=== PATIENT | female | born 1980 | race Caucasian/White ===

== ENCOUNTER 2019-02-04 10:38 | Inpatient (IN) | payer OTHER ==
[~2019-02-04] VITALS: Ht 154.9 cm; Wt 72.7 kg
[2019-02-04] MEDS ORDERED: OXYTOCIN 30U/ 0.9% NaCL 500ML 500 ML IV ONE (10:42)
[2019-02-04] MEDS ORDERED: NEWBORN KIT ONE ×2 (10:47→10:48)
[2019-02-04] MEDS ORDERED: MISOPROSTOL 200 MCG TABLET ONE (10:48)
[2019-02-04] MEDS ORDERED: LIDOCAINE 1%, 20ML ONE (10:48)
[2019-02-04] MEDS ORDERED: OXYTOCIN 30U/ 0.9% NaCL 500ML 500 ML ONE ×2 (10:48→12:41)
[2019-02-04] MEDS ORDERED: PLEASE ENTER ALLERGIES MC SCH (10:51)
[2019-02-04] MEDS ORDERED: AMPICILLIN 2 GM in SODIUM CHLORIDE 0.9% 100 ML IVPB ONE (10:52)
[2019-02-04] MEDS ORDERED: FENTANYL PF 100 MCG/2ML IVPush PRN (11:00)
[2019-02-04] MEDS ORDERED: FENTANYL PF 100 MCG/2ML IV PRN (11:00)
[2019-02-04] MEDS ORDERED: TERBUTALINE 1 MG/ML, 1ML IVPush PRN (11:00)
[2019-02-04] MEDS ORDERED: METOCLOPRAMIDE 5 MG/ML, 2ML IVPush PRN (11:00)
[2019-02-04] MEDS ORDERED: SODIUM CITRATE/CITRIC ACID 30 ML UDC PO PRN (11:00)
[2019-02-04] MEDS ORDERED: ONDANSETRON 2MG/ML, 2ML IVPush PRN (11:00)
[2019-02-04 11:30] LABS: BASOPHILS % (AUTO) 0 % (0-1); EOSINOPHILS % (AUTO) 0 % (1-7); LYMPHOCYTES # (AUTO) 0.79 x10^3/uL (1-3.4); LYMPHOCYTES % (AUTO) 7 % (22-44); MD NO; MEAN CORPUSCULAR HEMOGLOBIN 28.9 pg (27.0-34.8); MEAN PLATELET VOLUME 8.8 fL (7.4-10.4); MONOCYTES % (AUTO) 3 % (2-9); NEUTROPHILS % (AUTO) 90 % (42-75); PLATELET COUNT 226 x10^3/uL (130-400); RED BLOOD COUNT 3.87 x10^6/uL (3.82-5.3); RED CELL DISTRIBUTION WIDTH 14.9 % (9.6-15.2)
[2019-02-04] MEDS ORDERED: LACTATED RINGERS 1,000 ML IV SCH (12:00)
[2019-02-04] MEDS ORDERED: D5%-LACTATED RINGERS 1,000 ML IV SCH (12:00)
[2019-02-04] MEDS: OXYTOCIN 30U/ 0.9% NaCL 500ML 500 ML IV SCH ×2 (12:16→22:16)
[2019-02-04] MEDS ORDERED: CARBOPROST TROMETHAMINE 250 MCG/ML, 1ML IM PRN (12:30)
[2019-02-04] MEDS ORDERED: ACETAMINOPHEN 325 MG TABLET PO PRN (12:30)
[2019-02-04] MEDS ORDERED: MEASLES,MUMPS&RUBELLA VACC/PF 0.5 ML SQ-VACC PRN (12:30)
[2019-02-04] MEDS ORDERED: DOCUSATE 100 MG CAPSULE PO PRN (12:30)
[2019-02-04] MEDS ORDERED: MISOPROSTOL 200 MCG TABLET PR PRN (12:30)
[2019-02-04] MEDS ORDERED: METHYLERGONOVINE 0.2 MG/ML IM PRN (12:30)
[2019-02-04] MEDS ORDERED: IBUPROFEN 600 MG TABLET PO PRN (12:30)
[2019-02-04] MEDS ORDERED: OXYcodone/APAP 5/325MG TABLET PO PRN ×2 (12:30)
[2019-02-04] MEDS ORDERED: RHOGAM FROM BLOOD BANK 1 NOTE EA IM/IV ONE (12:30)
[2019-02-04] MEDS ORDERED: DIPH,PERTUSS(ACELL),TET VAC/PF NC IM-VACC PRN (12:30)
[2019-02-04 12:32] VITALS: BP 134/61
[2019-02-04 14:30] VITALS: BP 117/74
[2019-02-04] MEDS ORDERED: AMPICILLIN 1 GM in SODIUM CHLORIDE 0.9% 100 ML IVPB SCH (15:00)
[2019-02-04 19:41] LABS: BASOPHILS # (AUTO) 0.02 x10^3/uL (0-0.1); BASOPHILS % (AUTO) 0 % (0-1); EOSINOPHILS % (AUTO) 0 % (1-7); LYMPHOCYTES # (AUTO) 1.17 x10^3/uL (1-3.4); LYMPHOCYTES % (AUTO) 10 % (22-44); MD NO; MEAN CORPUSCULAR HEMOGLOBIN 29.3 pg (27.0-34.8); MEAN CORPUSCULAR HGB CONC 34.2 g/dL (32.4-35.8); MEAN CORPUSCULAR VOLUME 85.8 fL (80-100); MEAN PLATELET VOLUME 8.3 fL (7.4-10.4); MONOCYTES % (AUTO) 6 % (2-9); NEUTROPHILS # (AUTO) 9.74 x10^3/uL (1.8-6.8); NEUTROPHILS % (AUTO) 84 % (42-75); PLATELET COUNT 219 x10^3/uL (130-400); RED BLOOD COUNT 3.37 x10^6/uL (3.82-5.3); RED CELL DISTRIBUTION WIDTH 14.6 % (9.6-15.2)
[2019-02-04 19:45] VITALS: BP 121/81
[2019-02-05 00:10] VITALS: BP 119/72
[2019-02-05 04:20] VITALS: BP 114/71
[2019-02-05] MEDS: OXYTOCIN 30U/ 0.9% NaCL 500ML 500 ML IV SCH ×2 (07:26→18:16)
[2019-02-05 07:45] VITALS: BP 99/64
[2019-02-05] MEDS: PRENATAL VIT/IRON/FA 1 EACH TABLET PO SCH (09:28)
[2019-02-05 21:00] VITALS: BP 113/72
[2019-02-06] MEDS: OXYTOCIN 30U/ 0.9% NaCL 500ML 500 ML IV SCH (04:16)
[2019-02-06 06:56] VITALS: BP 110/74
[2019-02-06] MEDS: PRENATAL VIT/IRON/FA 1 EACH TABLET PO SCH (07:18)
== END 2019-02-06 14:30 | disposition home or self-care (01) | DRG 807 ==
LOC: LDOP 10:38 → LDIP 10:42 → 2NW 13:57
PROVIDERS: ADMIT Obstetrics & Gynecology; ATTEND Obstetrics & Gynecology
PROC: 10E0XZZ Delivery of Products of Conception, External Approach (ICD-10-PCS; principal; 2019-02-04)
PROC: 0HQ9XZZ Repair Perineum Skin, External Approach (ICD-10-PCS; 2019-02-04)
DX: O70.0 First degree perineal laceration during delivery (principal); Z37.0 Single live birth; Z3A.36 36 weeks gestation of pregnancy
CPT/HCPCS: 36415; 82803; 85025; 86850; 86900; 90715; G0378; J0290; J2590; J7120

== ENCOUNTER 2021-06-27 15:07 | Inpatient (IN) | payer MEDICAID, OTHER ==
[~2021-06-27] VITALS: Ht 154.9 cm; Wt 72.7 kg
[2021-06-27] MEDS ORDERED: TERBUTALINE 1 MG/ML, 1ML IVPush PRN (15:30)
[2021-06-27] MEDS ORDERED: CALCIUM CARBONATE 500 MG TAB.CHEW PO PRN (15:30)
[2021-06-27] MEDS ORDERED: OXYTOCIN 30U/ 0.9% NaCL 500ML 500 ML IV ONE (15:30)
[2021-06-27] MEDS ORDERED: SODIUM CITRATE/CITRIC ACID 30 ML UDC PO PRN (15:30)
[2021-06-27] MEDS ORDERED: ONDANSETRON 2MG/ML, 2ML IVPush PRN (15:30)
[2021-06-27] MEDS ORDERED: FENTANYL PF 100 MCG/2ML IVPush PRN (15:30)
[2021-06-27] MEDS ORDERED: PLEASE ENTER HEIGHT AND WEIGHT MC SCH (15:30)
[2021-06-27] MEDS ORDERED: ALUMINUM/MAG/SIMETHICONE 30 ML UDC PO PRN (15:30)
[2021-06-27] MEDS ORDERED: TERBUTALINE 1 MG/ML, 1ML SQ PRN (15:30)
[2021-06-27] MEDS ORDERED: NEWBORN KIT ONE ×2 (15:38→15:54)
[2021-06-27 15:52] LABS: BASOPHILS % (AUTO) 0 % (0-1); EOSINOPHILS % (AUTO) 0 % (1-7); LYMPHOCYTES % (AUTO) 6 % (22-44); MEAN CORPUSCULAR HEMOGLOBIN 29.2 pg (27.0-34.8); MEAN CORPUSCULAR HGB CONC 33.3 g/dL (32.4-35.8); MEAN PLATELET VOLUME 8.2 fL (7.4-10.4); MONOCYTES % (AUTO) 4 % (2-9); NEUTROPHILS % (AUTO) 90 % (42-75); PLATELET COUNT 197 x10^3/uL (130-400); RED CELL DISTRIBUTION WIDTH 15.4 % (9.6-15.2)
[2021-06-27 16:00] LABS: AMPHETAMINE SCREEN, URINE Negative (Negative); BARBITURATE SCREEN, URINE Negative (Negative); BENZODIAZEPINE SCREEN, URINE Negative (Negative); CANNABINOID SCREEN, URINE Negative (Negative); COCAINE SCREEN, URINE Negative (Negative); METHADONE SCREEN, URINE Negative (Negative); OPIATE SCREEN, URINE Negative (Negative)
[2021-06-27] MEDS ORDERED: DOCUSATE 100 MG CAPSULE PO PRN (16:30)
[2021-06-27] MEDS ORDERED: METHYLERGONOVINE 0.2 MG/ML IM PRN (16:30)
[2021-06-27] MEDS ORDERED: OXYTOCIN 10 UNITS/ML, 1ML IM PRN (16:30)
[2021-06-27] MEDS ORDERED: IBUPROFEN 800 MG TABLET PO PRN (16:30)
[2021-06-27] MEDS ORDERED: OXYcodone/APAP 5/325MG TABLET PO PRN ×2 (16:30)
[2021-06-27] MEDS ORDERED: ONDANSETRON 2MG/ML, 2ML IV PRN (16:30)
[2021-06-27] MEDS ORDERED: SIMETHICONE 80 MG CHEW TAB PO PRN (16:30)
[2021-06-27] MEDS: OXYTOCIN 30U/ 0.9% NaCL 500ML 500 ML IV SCH ×2 (16:30→22:39)
[2021-06-27] MEDS ORDERED: ACETAMINOPHEN 325 MG TABLET PO PRN ×2 (16:30)
[2021-06-27] MEDS ORDERED: TRANEXAMIC ACID 100 MG/ML, 10ML IV ONE (16:30)
[2021-06-27] MEDS ORDERED: MISOPROSTOL 200 MCG TABLET PR PRN (16:30)
[2021-06-27] MEDS ORDERED: CARBOPROST TROMETHAMINE 250 MCG/ML, 1ML IM PRN (16:30)
[2021-06-27 19:19] VITALS: BP 126/65
[2021-06-27 20:05] VITALS: BP 120/76
[2021-06-27 23:33] VITALS: BP 92/60
[2021-06-27 23:48] LABS: BASOPHILS % (AUTO) 1 % (0-1); EOSINOPHILS % (AUTO) 0 % (1-7); LYMPHOCYTES % (AUTO) 9 % (22-44); MEAN CORPUSCULAR HEMOGLOBIN 29.5 pg (27.0-34.8); MEAN CORPUSCULAR HGB CONC 33.9 g/dL (32.4-35.8); MEAN PLATELET VOLUME 8.1 fL (7.4-10.4); MONOCYTES % (AUTO) 8 % (2-9); NEUTROPHILS % (AUTO) 82 % (42-75); PLATELET COUNT 199 x10^3/uL (130-400); RED BLOOD COUNT 3.68 x10^6/uL (3.82-5.3); RED CELL DISTRIBUTION WIDTH 14.8 % (9.6-15.2)
[2021-06-28 03:46] VITALS: BP 109/66
[2021-06-28 07:45] VITALS: BP 119/82
[2021-06-28] MEDS: PRENATAL VIT/IRON/FA 1 EACH TABLET PO SCH (09:00)
[2021-06-28 13:53] VITALS: BP 124/86
[2021-06-28] MEDS: OXYTOCIN 30U/ 0.9% NaCL 500ML 500 ML IV SCH (22:30)
[2021-06-28 23:45] VITALS: BP 114/78
[2021-06-29 07:45] VITALS: BP 133/86
[2021-06-29] MEDS ORDERED: IBUP-1222 PO (07:56)
[2021-06-29] MEDS: OXYTOCIN 30U/ 0.9% NaCL 500ML 500 ML IV SCH (08:30)
[2021-06-29] MEDS: PRENATAL VIT/IRON/FA 1 EACH TABLET PO SCH (09:00)
== END 2021-06-29 15:13 | disposition home or self-care (01) | DRG 560 ==
LOC: LDOP 15:07 → LDIP 15:20 → 2NW 20:05
PROVIDERS: ADMIT Obstetrics & Gynecology; ATTEND Obstetrics & Gynecology
PROC: 10E0XZZ Delivery of Products of Conception, External Approach (ICD-10-PCS; principal; 2021-06-27)
PROC: 10907ZC Drainage of Amniotic Fluid, Therapeutic from Products of Conception, Via Natural or Artificial Opening (ICD-10-PCS; 2021-06-27)
DX: O80 Encounter for full-term uncomplicated delivery (principal); Z37.0 Single live birth; Z20.822 Contact with and (suspected) exposure to COVID-19; Z3A.35 35 weeks gestation of pregnancy
CPT/HCPCS: 36415; 80307; 85025; 86592; 86850; 86900; 87635; G0378